=== PATIENT | female | born 1985 | race Caucasian/White ===

== ENCOUNTER 2017-01-18 23:55 | Emergency (ER) | payer SELFPAY ==
[~2017-01-18] VITALS: Ht 157.5 cm; Wt 72.6 kg
--- NOTE | 2017-01-19 00:25 | PHYS DOC ---
Past Medical History Past Medical History: Anxiety, GERD, Other Additional Past Medical Histor: scholiosis, visually impaired, insomnia, mrsa Past Surgical History: , Tubal ligation, Other Additional Past Surgical Histo: left below the knee amputation, spinal surgery( hardware) Alcohol Use: Rarely Drug Use: None Adult General Chief Complaint Chief Complaint: MECHANICAL FALL HPI HPI Patient is a 31 year old female presents to the emergency Department with complaints of low back pain after a fall. 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 She states that she is learning to walk down the stabs and when she was walking on steps she slipped and fell landing on her buttocks and sliding down 8 steps. She states that she has low back pain without radiation. Chest no abdominal pain. Patient also complains of right knee pain which she said is been intermittent for 2 days. She states that she did not realize it was swollen until her brother told her so. Patient reports no fever Review of Systems Review of Systems Constitutional: Denies fever or chills [] Eyes: Denies change in visual acuity, redness, or eye pain [] HENT: Denies nasal congestion or sore throat [] Respiratory: Denies cough or shortness of breath [] Cardiovascular: No additional information not addressed in HPI [] GI: Denies abdominal pain, nausea, vomiting, bloody stools or diarrhea [] : Denies dysuria or hematuria [] Musculoskeletal: Low back pain, right knee pain Integument: Denies rash or skin lesions [] Neurologic: Denies headache, focal weakness or sensory changes [] Endocrine: Denies polyuria or polydipsia [] Current Medications Current Medications Current Medications Medications (Trade) Dose Ordered Sig/Tony Start Time Stop Time Status Last Admin Dose Admin Acetaminophen/ Hydrocodone Bitart (Lortab 10/325) 1 tab 1X ONCE 01/19/17 00:45 01/19/17 00:46 DC Allergies Allergies Allergies Coded Allergies Type Severity Reaction Last Updated Verified meropenem Allergy Unknown 01/19/17 Yes piperacillin Allergy Unknown 01/19/17 Yes tazobactam Allergy Unknown 01/19/17 Yes Physical Exam Physical Exam Constitutional: Well developed, well nourished, no acute distress, non-toxic appearance. [] HENT: Normocephalic, atraumatic, bilateral external ears normal, oropharynx moist, no oral exudates, nose normal. [] Eyes: PERRLA, EOMI, conjunctiva normal, no discharge. [] Neck: Normal range of motion, no tenderness, supple, no stridor. [] Cardiovascular:Heart rate regular rhythm, no murmur [] Lungs & Thorax: Bilateral breath sounds clear to auscultation [] Abdomen: Bowel sounds normal, soft, no tenderness, no masses, no pulsatile masses. [] Skin: Warm, dry, no erythema, no rash. [] Back: Mild tenderness in the left lumbosacral area without midline tenderness. Negative straight raise leg test. Extremities: Right knee exam: No swelling, no erythema, no ecchymosis. She has no laxity on anterior drawer negative valgus/varus stress test. She has diffuse tenderness over the anterior knee. He last range of motion and does not appear to have pain with range of motion either active or passive. Patient is a left lobe of the knee amputee as well as several digits on the left hand with amputation. Neurologic: Alert and oriented X 3, normal motor function, normal sensory function, no focal deficits noted. [] Psychologic: Affect normal, judgement normal, mood normal. [] Current Patient Data Vital Signs Vital Signs Date Time Temp Pulse Resp B/P (MAP) Pulse Ox O2 Delivery O2 Flow Rate FiO2 01/18/17 23:56 97.6 94 18 125/81 (96) 99 Room Air 97.6 EKG EKG [] Radiology/Procedures Radiology/Procedures Lumbar fine film and bilateral knee x-rays reviewed by Dr. Nicole. No acute changes [] Course & Med Decision Making Course & Med Decision Making Pertinent Labs and Imaging studies reviewed. (See chart for details) [] Dragon Disclaimer Dragon Disclaimer This electronic medical record was generated, in whole or in part, using a voice recognition dictation system. Departure Departure Impression: Primary Impression: Fall (on) (from) other stairs and steps, initial encounter Disposition: 01 HOME, SELF-CARE Condition: STABLE Referrals: ALISTAIR RAM MD (PCP) Patient Instructions: Fall Prevention and Home Safety, [id number] Additional Instructions: Ice to affected areas as needed for 2 days, moist heat as needed after the initial 2 day period. Continue your home pain medication regimen VAZQUEZ VENCES APRN January 19, 2017 00:25
[2017-01-19] MEDS ORDERED: HYDROcodone/APAP 10/325 1 TAB TABLET PO ONE (00:45)
[2017-01-19 00:56] VITALS: BP 118/65
--- NOTE | 2017-01-19 07:26 | RAD ---
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 There is fusion of those vertebral bodies. There is a mild right convexity thoracolumbar scoliosis. There is moderate disc space narrowing and marginal spurring at L4-5. There are moderate degenerative changes involving the facet joints in the lower lumbar spine. No acute fracture or dislocation is identified. IMPRESSION: 1. Postsurgical and degenerative changes as described above. 2. No acute bony abnormality is detected. Bilateral knees, 01/19/2017: There has been a prior below the knee amputation on the left. No acute fracture or dislocation is identified. No significant arthritic changes are seen at the knee joints. No joint effusion is evident. IMPRESSION: No acute bony abnormality is detected.
== END 2017-01-19 01:00 | disposition home or self-care (01) ==
LOC: ER 23:55
DX: M25.561 Pain in right knee (principal); M54.5 Low back pain; F41.9 Anxiety disorder, unspecified; K21.9 Gastro-esophageal reflux disease without esophagitis; G47.00 Insomnia, unspecified; Z88.1 Allergy status to other antibiotic agents; Z89.512 Acquired absence of left leg below knee; W10.9XXA Fall (on) (from) unspecified stairs and steps, initial encounter; Y93.89 Activity, other specified; Y92.89 Other specified places as the place of occurrence of the external cause; Y99.8 Other external cause status
CPT/HCPCS: 72110; 73562; 99284